=== PATIENT | male | born 1985 | race Caucasian/White ===

== ENCOUNTER 2018-06-13 23:29 | Emergency (ER) | payer SELFPAY ==
[~2018-06-13] VITALS: Ht 167.6 cm; Wt 83.9 kg
[2018-06-13 23:36] VITALS: BP 142/90
[2018-06-13] MEDS ORDERED: ALBUTEROL 0.083% 2.5 MG/3 ML NEBU INH ONE (23:40)
[2018-06-13] MEDS ORDERED: predniSONE 20 MG TAB PO ONE (23:40)
[2018-06-13] MEDS ORDERED: ALBUTEROL SULFATE/IPRATROPIU 3 ML SOL IH ONE (23:40)
[2018-06-14 00:38] VITALS: BP 138/70
== END 2018-06-14 00:34 | disposition home or self-care (01) ==
LOC: MED 23:29
DX: J45.901 Unspecified asthma with (acute) exacerbation (principal); F17.210 Nicotine dependence, cigarettes, uncomplicated
CPT/HCPCS: 94640; 99283; J7512; J7613; J7620

== ENCOUNTER 2018-10-08 15:26 | Emergency (ER) | payer SELFPAY ==
[~2018-10-08] VITALS: Ht 165.1 cm; Wt 76.7 kg
--- NOTE | 2018-10-08 15:33 | NUR ---
PT WHEELCHAIRED TO ER BED 03
[2018-10-08] MEDS ORDERED: methylPREDNISolone SS 125 MG/2 ML VIAL IVP ONE (15:35)
[2018-10-08] MEDS ORDERED: ALBUTEROL 0.083% 2.5 MG/3 ML NEBU INH ONE ×2 (15:35→18:00)
[2018-10-08] MEDS ORDERED: IPRATROPIUM 0.02% 0.5 MG/2.5 ML NEBU INH ONE (15:35)
[2018-10-08 15:36] VITALS: BP 136/112
--- NOTE | 2018-10-08 15:44 | NUR ---
LAB AT BEDSIDE, XRAY AT BEDSIDE
--- NOTE | 2018-10-08 15:46 | NUR ---
PT BIB [facility] FOR SOB. PT O2 SAT AT 87 ON RA, WHEEZES AND RONCHI BILATERAL UPON EXHALE, LABORED BREATHING, USE OF ACCESSORY MUSSCLES, DISTENDED NECK VIENS, CAP REFIL DELAYED. PUT ON 4L VIA NASAL CANNULA, O2 INCREASED TO 96%, PT STILL EXHIBITING LABORED BREATHING. RT AT BEDSIDE AT THIS TIME, ADMINISTERING BREATHING TX. PT DENIES PAIN AT THIS TIME. GIRLFRIEND REPORTS HEROIN USE. ER MD TO SEE PT.
[2018-10-08 15:55] LABS: HEMATOCRIT 55.2 % (36-52); HEMOGLOBIN 18.9 g/dL (12.0-18.0); MEAN CORPUSCULAR HEMOGLOBIN 31 pg (27-31); MEAN CORPUSCULAR HGB CONC 34 g/dL (33-37); MEAN CORPUSCULAR VOLUME 89.7 fL (80-94); PLATELET COUNT (AUTO) 257 K/uL (140-450); RED BLOOD CELL COUNT(AUTO) 6.15 MIL/uL (4.20-6.10); RED CELL DISTRIBUTION WIDTH 14.1 % (11.6-13.7); WHITE BLOOD COUNT (AUTO) 10.6 K/uL (4.8-10.8)
[2018-10-08] MEDS ORDERED: ALBUTEROL SULFATE/IPRATROPIU 3 ML SOL IH ONE (16:05)
[2018-10-08 16:13] LABS: ANION GAP 13.8 (8-16); CARBON DIOXIDE 29.1 mmol/L (21-32); CREATININE 1.2 mg/dL (0.7-1.3); POTASSIUM 3.9 mmol/L (3.5-5.1)
--- NOTE | 2018-10-08 16:21 | NUR ---
PT RR 12, SYMMETRICAL AND NON-LABORED, EXPIRATORY WHEEZES PRESENT THROUGHOUT, O2 SAT AT 99%. PT REPORTS NO SOB AT THIS TIME. PT REPORTS NAUSEA AT THIS TIME AND A PRESSURE HEADACE AT 8/10. PT STATES HE IS RESLTESS. PT SPEECH IS SLOW, EYES KEEP CLOSING WHILE TALKING TO HIM. TURNED LIGHTS OFF IN HIS ROOM. PT FRIEND STATEED THAT HE USED METH AND HEROINE BEFORE COMING IN TO ED.
[2018-10-08 16:22] LABS: ALBUMIN 4.2 g/dL (3.4-5.0); TOTAL BILIRUBIN 0.6 mg/dL (0.0-1.0)
[2018-10-08 16:54] LABS: LYMPHOCYTES % (MANUAL) 11 % (20-46); MONOCYTES % (MANUAL) 3 % (5-12)
[2018-10-08 16:55] LABS: EOSINOPHILS % (MANUAL) 12 % (0-4)
--- NOTE | 2018-10-08 17:08 | NUR ---
PT O2 SAT AT 97% ON 2L NC. PUT PT ON ROOM AIR AND AM CONTINUEING TO MONITOR O2 SAT. PT DENIES SOB AT THIS TIME. VSS.
--- NOTE | 2018-10-08 18:24 | NUR ---
RT AT BEDSIDE.
[2018-10-08 19:02] VITALS: BP 128/82
--- NOTE | 2018-10-08 19:02 | NUR ---
Patient does not wish to proceed with medical care recommended by DR BUCHANAN. Patient given information related to possible complications, up to and including , which could occur as a result of leaving hospital at this time. Patient verbalizes understanding of risks involved leaving against medical advice. Patient has signed AMA form.
== END 2018-10-08 19:02 | disposition home or self-care (01) ==
LOC: MED 15:26
DX: J45.901 Unspecified asthma with (acute) exacerbation (principal)
CPT/HCPCS: 36415; 71045; 80053; 84484; 85025; 93005; 94640; 96374; 99285; J2930; J7613; J7620; J7644; Q0092

== ENCOUNTER 2019-07-25 03:38 | Emergency (ER) | payer SELFPAY ==
[~2019-07-25] VITALS: Ht 167.6 cm; Wt 81.6 kg
[2019-07-25 03:43] VITALS: BP 135/86
--- NOTE | 2019-07-25 03:43 | NUR ---
TO BED # 11 AMBULATORY
--- NOTE | 2019-07-25 03:47 | NUR ---
RRespiratory Therapist at bedside for respiratory intervention.
[2019-07-25] MEDS ORDERED: ACETAMINOPHEN EXTRA STRENGTH 500 MG TAB PO ONE (03:50)
--- NOTE | 2019-07-25 03:53 | NUR ---
Dr. Kruger examining patient.
[2019-07-25] MEDS ORDERED: ALBUTEROL SULFATE/IPRATROPIU 3 ML SOL IH ONE ×3 (03:55→05:40)
--- NOTE | 2019-07-25 04:04 | NUR ---
34 Y/O MALE PRESENTS TO ED, C/O DIFFICULTY BREATHING X4 DAYS. PT STATES HAVING DIFFICULTY BREATHING; HX OF ASTHMA, TAKES INHALER WITH NO EFFECT. AUDIBLE UPPER RESPIRATORY WHEEZING. PT DENIES TAKING ANY MEDICTIOUS PRIOR TO COMING TO ED. PT DENIES ANY CHEST PAIN. PVS, ERMD AWARE. WILL CONTINUE TO MONITOR.
[2019-07-25] MEDS ORDERED: MAG SULF 2000 MG/WATER PREMIX 50 ML IV ONE (04:35)
[2019-07-25 06:24] VITALS: BP 123/68
--- NOTE | 2019-07-25 06:24 | NUR ---
PT DISCHARGED WITH PAPERWORK. EDUCATED PT REGARDING MEDICATIONS AND D/C INSTRUCTIONS. PT VERBALIZED UNDERSTANDING. TOLD PT TO FOLLOW UP WITH PCP AND WHEN TO RETURN TO ED. PT AT STABLE CONDITION. NO SOB/DIFFICULTY BREATHING NOTED. ALL QUESTIONS ANSWERED.
== END 2019-07-25 06:24 | disposition home or self-care (01) ==
LOC: MED 03:38
DX: J11.1 Influenza due to unidentified influenza virus with other respiratory manifestations (principal); I10 Essential (primary) hypertension; J40 Bronchitis, not specified as acute or chronic; Z71.6 Tobacco abuse counseling; Z87.891 Personal history of nicotine dependence
CPT/HCPCS: 94640; 96365; 99284; J3475; J7620